=== PATIENT | female | born 1975 | race Caucasian/White ===

== ENCOUNTER 2023-05-11 22:06 | Emergency (ER) | payer OTHER ==
[~2023-05-11] VITALS: Ht 162.6 cm; Wt 57.0 kg
[2023-05-11 22:34] VITALS: O2SAT 98
[2023-05-11] MEDS ORDERED: FENTANYL CITRATE/PF 50MCG/ML 2ML VIAL IV ONE (23:30)
[2023-05-11] MEDS ORDERED: ONDANSETRON HCL 4MG/2ML INJ IV ONE (23:30)
[2023-05-11 23:39] LABS: BASOPHILS % 0.3 % (0.0-2.0); HEMATOCRIT. 34.7 % (36.0-48.0); HEMOGLOBIN. 11.8 g/dL (12.0-16.0); LYMPHOCYTES % 26.5 % (20.0-50.0); MEAN CORPUSCULAR HEMOGLOBIN 31.2 pg (28.0-32.0); MEAN CORPUSCULAR VOLUME 91.5 fL (81.0-99.0); MEAN PLATELET VOLUME 8.2 fl (7.4-10.4); MONOCYTES % 9.8 % (2.0-8.0); NEUTROPHILS % 60.4 % (40.0-76.0); PLATELET 190 x1000/uL (130-400); RED BLOOD CELL COUNT 3.79 mill/uL (4.2-5.4); RED CELL DISTRIBUTION WIDTH 13.4 % (11.6-14.6); WHITE BLOOD COUNT 5.5 x1000/uL (4.5-11.0)
[2023-05-11 23:46] LABS: CHLORIDE 106 mEq/L (98-107); INDEX HEMOLYSI 1 (1-3); INDEX ICTERIC 1 (1-4); INDEX LIPEMIC 1 (1-3); POTASSIUM 3.4 mEq/L (3.5-5.1); SODIUM 139 mEq/L (136-145)
[2023-05-11 23:51] LABS: PARTIAL THROMBOPLASTIN TIME 27.3 sec (23.4-31.0); PROTHROMBIN TIME 10.3 sec (9.6-11.0)
[2023-05-11 23:54] LABS: ALANINE AMINOTRANSFERASE 24 IU/L (13-61); ALBUMIN 3.9 g/dL (3.4-5.0); ASPARTATE AMINOTRANSFERASE 16 IU/L (15-37); BILIRUBIN TOTAL 0.3 mg/dL (0.1-1.0); CALCIUM 9.3 mg/dL (8.5-10.1); CARBON DIOXIDE 27 mEq/L (21-32); CREATININE 0.7 mg/dL (0.6-1.3); GLUCOSE 110 mg/dL (70-105); PROTEIN TOTAL 7.4 g/dL (6.0-8.3); UREA NITROGEN BLOOD 10 mg/dL (7-21)
[2023-05-12 00:07] LABS: HCG SCREEN NEGATIVE
[2023-05-12] MEDS ORDERED: IOHEXOL-300 100 ML BOTTLE ONE (02:47)
[2023-05-12 05:30] VITALS: BP 107/58; PULSE 66; RESP 14; TEMP 98.5
== END 2023-05-12 05:51 | disposition home or self-care (01) ==
LOC: ER 22:06
DX: M54.2 Cervicalgia (principal); R07.81 Pleurodynia; V49.59XA Passenger injured in collision with other motor vehicles in traffic accident, initial encounter; Y93.89 Activity, other specified; Y92.89 Other specified places as the place of occurrence of the external cause; Y99.8 Other external cause status
CPT/HCPCS: 80053; 84703; 83690; 85025; 85610; 85730; 36415; 73030; 99285; 70450; 71260; 72125; 74177; 96374; 96375; Z7610; J3010; Q9967; J2405; 81025

== ENCOUNTER 2023-05-15 18:38 | Emergency (ER) | payer OTHER ==
[~2023-05-15] VITALS: Ht 160 cm; Wt 56.0 kg
[2023-05-15 19:47] VITALS: BP 99/55; O2SAT 100
[2023-05-15] MEDS ORDERED: IBUPROFEN 400MG TABLET PO ONE (21:45)
[2023-05-15] MEDS ORDERED: ACETAMINOPHEN 325MG TABLET PO ONE (22:00)
[2023-05-15] MEDS ORDERED: IBUP-2028 MT (23:07)
[2023-05-15 23:32] VITALS: PULSE 74; RESP 18; TEMP 98.4
== END 2023-05-15 23:33 | disposition home or self-care (01) ==
LOC: ER 18:38
DX: M25.511 Pain in right shoulder (principal); M54.6 Pain in thoracic spine; Z98.890 Other specified postprocedural states
CPT/HCPCS: 73000; 73030; 99284; A4565